=== PATIENT | female | born 1995 | race Caucasian/White ===

== ENCOUNTER 2021-02-07 05:35 | Inpatient (IN) | payer OTHER ==
[~2021-02-07] VITALS: Ht 157.5 cm; Wt 65.8 kg
--- NOTE | 2021-02-07 07:33 | NUR ---
COVID SWAB OBTAINED SENT TO IN-HOUSE LAB
--- NOTE | 2021-02-07 14:55 | PR ---
[facility] [address] [facility] [place], [place] [address] Signed Progress Notes IP Datetime Report Generated by CPN: 02/07/2021 14:55 PROGRESS NOTES: [id number] Impression: Reassuring Heart Rate Other Procedures: ROM of residual bag Plan: Augmentation VITAL SIGNS: [id number] Vital Signs: Reviewed; Within Normal Limits EXAM: [id number] Dilatation: 4.5 Effacement: 80 Station: -2 Contractions: q4-5 min, tracing poorly but increasing intensity MEMBRANES: [id number] Membranes Status: Ruptured Amniotic Fluid Color: Clear Comments: AROM residual bag performed, scant return of clear fluid. Continue pitocin Comfortable with epidural FETUS A: [id number] FHR Baseline: 145 Variability: Moderate 6-25bpm Accelerations: 15X15 Decelerations: Early; Variable FHR Category: Category II Presentation: Vertex Comments on Fetus A: early decels on initial presentation, isolated variable. No evidence of acidemia FETUS B: [id number] Signing Physician: Beau Carlton DO Copies: ~ *Electronically Signed* 02/07/21 6553 BEAU CARLTON DO PATIENT NAME: NAA BRADY PROGRESS NOTE DATE OF : [birth year] PHYSICIAN: BEAU CARLTON DO RPT #: [id number] REPORT IS CONFIDENTIAL AND NOT TO BE RELEASED WITHOUT AUTHORIZATION
--- NOTE | 2021-02-08 09:08 | PR ---
[facility] [address] [place], [place] [address] Signed PP Progress Notes Datetime Report Generated by CPN: 02/08/2021 09:08 SUBJECTIVE: [id number] Pain: Within Normal Limits Nausea/Vomiting: Denies Flatus: Yes Bowel Movement: No Vital Signs: [id number] Vital Signs: Reviewed Cardiovascular: Normal Respiratory: Normal Abdomen/Uterus: Normal Lochia: Normal Vulva/Perineum: Normal Breasts: Normal Extremities: Normal Progress: Normal Exam Comments: Gen: NAD, sitting up in bed Lungs: no dyspnea/retractions CV: RRR, no pallor Abd: SNTND, FFBU Ext: No edema, neg Gloria's BL IMPRESSION/PLAN/PROCEDURES: [id number] Impression: Normal Progression Plan: Continue Present Management Procedures: Rhogam Progress Notes: PPD#1 s/p , complicated by SARS-COV2 positive swab on admission -remains asymptomatic for COVID19, airborne precautions in place -progressing well : ambulating, voiding, tolerating regular diet. Lochia light, pain well controlled with orals. well without difficulty. Uncertain what she will use for contraception. Plan: Rhogam today, baby A positive Anticipate DC to home later tonight if baby cleared by peds or tomorrow Signing Physician: Beau Carlton DO Copies: *Electronically Signed* 02/08/21 0908 BEAU CARLTON DO PATIENT NAME: NAA BRADY PROGRESS NOTE DATE OF : 96 PHYSICIAN: BEAU CARLTON DO RPT #: [id number] REPORT IS CONFIDENTIAL AND NOT TO BE RELEASED WITHOUT AUTHORIZATION [facility] [address] [place] [id number] Signed ~ *Electronically Signed* 02/08/21 0908 BEAU CARLTON DO PATIENT NAME: NAA BRADY PROGRESS NOTE DATE OF : 96 PHYSICIAN: BEAU CARLTON DO RPT #: [id number] REPORT IS CONFIDENTIAL AND NOT TO BE RELEASED WITHOUT AUTHORIZATION
== END 2021-02-08 17:05 | disposition home or self-care (01) | DRG 805 ==
LOC: FBCO 05:35 → FBC 05:52
PROVIDERS: ADMIT Obstetrics & Gynecology; ATTEND Obstetrics & Gynecology
PROC: 10E0XZZ Delivery of Products of Conception, External Approach (ICD-10-PCS; principal; 2021-02-07)
PROC: 0KQM0ZZ Repair Perineum Muscle, Open Approach (ICD-10-PCS; 2021-02-07)
PROC: 0UQMXZZ Repair Vulva, External Approach (ICD-10-PCS; 2021-02-07)
PROC: 3E0R3BZ Introduction of Anesthetic Agent into Spinal Canal, Percutaneous Approach (ICD-10-PCS; 2021-02-07)
PROC: 00HU33Z Insertion of Infusion Device into Spinal Canal, Percutaneous Approach (ICD-10-PCS; 2021-02-07)
PROC: 8E0ZXY6 Isolation (ICD-10-PCS; 2021-02-07)
DX: O42.92 Full-term premature rupture of membranes, unspecified as to length of time between rupture and onset of labor (principal); U07.1 COVID-19; Z37.0 Single live birth; O98.52 Other viral diseases complicating childbirth; Z3A.38 38 weeks gestation of pregnancy; O76 Abnormality in fetal heart rate and rhythm complicating labor and delivery; O70.1 Second degree perineal laceration during delivery
CPT/HCPCS: 01960; 83030; 85027; 86850; 86870; 86900; 86901; A9270; C9803; J2001; J2405; J2590; J2790; J2795; J7121; U0003

== ENCOUNTER 2024-01-22 09:57 | Inpatient (IN) | payer OTHER ==
[~2024-01-22] VITALS: Ht 158.8 cm; Wt 61.2 kg
[2024-01-22] MEDS ORDERED: CALCIUM CARBONATE 500 MG CHEW PO PRN ×2 (10:15→11:00)
[2024-01-22] MEDS ORDERED: MAGNESIUM HYDROXIDE/AL HYDROX 30 ML CUP PO PRN ×2 (10:15→11:00)
[2024-01-22] MEDS ORDERED: OXYTOCIN/DEXTROSE 5% 20 UNITS/100 ML BAG IV SCH (10:15)
[2024-01-22 10:24] LABS: HEMATOCRIT 32.4 % (35.0-50.0); HEMOGLOBIN 10.7 g/dL (12.0-18.0); MCH 25.6 (27-36); MCHC 33.2 g/dl (30-36); MCV 77.3 fl (81-99); RBC 4.19 M/ul (4.3-5.7); RDW 16.6 (10.5-15.0)
[2024-01-22 10:40] LABS: AMPHETAMINES, URINE NEGATIVE (NEGATIVE); BARBITURATES, URINE NEGATIVE (NEGATIVE); BENZODIAZEPINE, URINE NEGATIVE (NEGATIVE); BUPRENORPHINE, URINE NEGATIVE (NEGATIVE); CANNABINOID, URINE POSITIVE (NEGATIVE); COCAINE, URINE NEGATIVE (NEGATIVE); ECSTASY, URINE NEGATIVE (NEGATIVE); FENTANYL, URINE NEGATIVE (NEGATIVE); METHADONE, URINE NEGATIVE (NEGATIVE); OPIATES, URINE NEGATIVE (NEGATIVE); OXYCODONE, URINE NEGATIVE (NEGATIVE); PHENCYCLIDINE, URINE NEGATIVE (NEGATIVE)
[2024-01-22] MEDS ORDERED: MAGNESIUM HYDROXIDE 30 ML UDC PO PRN (11:00)
[2024-01-22] MEDS ORDERED: IBUPROFEN 600 MG TAB PO PRN (11:00)
[2024-01-22] MEDS ORDERED: WITCH HAZEL/GLYCERIN 1 EA PAD TOP PRN (11:00)
[2024-01-22] MEDS ORDERED: OXYTOCIN/0.9 % SODIUM CHLORIDE 500 ML IV SCH (11:00)
[2024-01-22] MEDS ORDERED: LIDOCAINE 2% VISCOUS 6 ML SYR TOP ONE ×2 (11:00)
[2024-01-22] MEDS ORDERED: ACETAMINOPHEN 325 MG TAB PO PRN (11:00)
[2024-01-22] MEDS ORDERED: HYDROCODONE/ACETA 5/325 TAB PO PRN (11:00)
[2024-01-22] MEDS ORDERED: BENZOCAINE 60 ML AEROSOL TOP PRN (11:00)
[2024-01-22] MEDS ORDERED: HYDROCORTISONE ACETATE 25 MG SUPP PR PRN (11:00)
[2024-01-22 11:26] LABS: ABO A; RH NEGATIVE
[2024-01-22 11:27] LABS: ANTIBODY SCREEN POSITIVE
[2024-01-22 13:00] VITALS: BP 113/58
[2024-01-22] MEDS ORDERED: LACTATED RINGER'S 1,000 ML IV SCH (13:00)
[2024-01-22] MEDS ORDERED: SENNOSIDES/DOCUSATE 1 EA TAB PO SCH (21:00)
[2024-01-23 05:28] LABS: HEMATOCRIT 26.4 % (35.0-50.0); HEMOGLOBIN 8.9 g/dL (12.0-18.0); MCH 26.2 (27-36); MCHC 33.7 g/dl (30-36); MCV 77.6 fl (81-99); RBC 3.4 M/ul (4.3-5.7); RDW 16.3 (10.5-15.0)
[2024-01-23 06:56] LABS: ABO A; FETAL HEMOGLOBIN SCREEN NEGATIVE; RH NEGATIVE; RHIG STATUS CANDIDATE; RHIG VIAL 1 RG23O03-U
[2024-01-23 06:57] LABS: ANTIBODY SCREEN POSITIVE; RHIG DOSE 1
--- NOTE | 2024-01-23 08:22 | PR ---
[facility] [address] [place] [address] Signed PP Progress Notes Datetime Report Generated by CPN: 01/23/2024 08:22 SUBJECTIVE: [id number] Pain: Within Normal Limits Vital Signs: [id number] Vital Signs: Reviewed; Within Normal Limits Cardiovascular: Not Done Respiratory: Not Done Abdomen/Uterus: Abnormal Lochia: Normal Vulva/Perineum: Not Done Breasts: Not Done CVA Tenderness: Not Done Extremities: Normal Incision: Not Applicable Progress: Normal Exam Comments: Fundus firm, NT @ U-1. H/H 8.9/26.4, WBC 14.5, plat 288k IMPRESSION/PLAN/PROCEDURES: [id number] Impression: Normal Progression Other Impression: Anemia Plan: Discharge Procedures: Rhogam Progress Notes: Doing well. She is tolerating the anemia well. She desires discharge. Signing Physician: Luiza Manley MD Copies: ~ *Electronically Signed* 01/23/24821 LUIZA MANLEY MD PATIENT NAME: NAA BRADY PROGRESS NOTE DATE OF : 96 PHYSICIAN: LUIZA MANLEY MD RPT #: [id number] REPORT IS CONFIDENTIAL AND NOT TO BE RELEASED WITHOUT AUTHORIZATION
== END 2024-01-23 12:00 | disposition home or self-care (01) | DRG 806 ==
LOC: FBCO 09:57 → FBC 10:00
PROVIDERS: Obstetrics & Gynecology; ADMIT Obstetrics & Gynecology; ATTEND Obstetrics & Gynecology
PROC: 10E0XZZ Delivery of Products of Conception, External Approach (ICD-10-PCS; principal; 2024-01-22)
PROC: 10907ZC Drainage of Amniotic Fluid, Therapeutic from Products of Conception, Via Natural or Artificial Opening (ICD-10-PCS; 2024-01-22)
DX: O62.3 Precipitate labor (principal); O99.324 Drug use complicating childbirth; Z37.0 Single live birth; O66.0 Obstructed labor due to shoulder dystocia; Z3A.39 39 weeks gestation of pregnancy; F12.90 Cannabis use, unspecified, uncomplicated; O99.334 Smoking (tobacco) complicating childbirth; Z91.048 Other nonmedicinal substance allergy status; F17.210 Nicotine dependence, cigarettes, uncomplicated
CPT/HCPCS: 36415; 80307; 83030; 85027; 86850; 86900; 86901; A9270; J2590; J2790; J7121